=== PATIENT | female | born 1990 | race Caucasian/White ===

== ENCOUNTER 2021-08-03 10:50 | Emergency (ER) | payer OTHER ==
[2021-08-03 10:56] VITALS: BP 119/71; PULSE 72; TEMP 98; BMI 20.1
[2021-08-03] MEDS ORDERED: IBUPROFEN 600 MG TABLET (FP) PO ONE ×2 (11:59→12:12)
== END 2021-08-03 12:40 | disposition home or self-care (01) ==
LOC: JER 10:50
DX: S83.92XA Sprain of unspecified site of left knee, initial encounter (principal); X50.9XXA Other and unspecified overexertion or strenuous movements or postures, initial encounter; Y04.8XXA Assault by other bodily force, initial encounter
CPT/HCPCS: 73562-TC-LT-FY; 99283-25